=== PATIENT | female | born 1955 | race Caucasian/White ===

== ENCOUNTER → 2021-05-14 | Outpatient (CLI) | payer OTHER ==
[2021-05-14 13:56] LABS: RED BLOOD COUNT 4.55 M/UL (4.00-5.10); WHITE BLOOD COUNT 7.9 K/UL (4.5-11.0)
[2021-05-14 14:26] LABS: BUN/CREATININE RATIO 23 (0-10)
[2021-05-15 09:14] LABS: HBSAG SCREEN Negative (Negative); HCV AB <0.1 (0.0-0.9); HEP B CORE AB, TOT Negative (Negative)
[2021-05-15 11:14] LABS: RHEUMATOID ARTHRITIS FACTOR 60.5 IU/mL (<14.0)
[2021-05-15 12:14] LABS: RNP ANTIBODIES <0.2 AI (0.0-0.9); SJOGREN'S ANTI-SS-A <0.2 AI (0.0-0.9); SJOGREN'S ANTI-SS-B <0.2 AI (0.0-0.9); SMITH ANTIBODIES <0.2 AI (0.0-0.9)
[2021-05-16 15:14] LABS: INTRINSIC FACTOR ABS, SERUM 1.1 AU/mL (0.0-1.1)
== END ==
LOC: LAB 13:01
PROVIDERS: Internal Medicine
DX: M05.79 Rheumatoid arthritis with rheumatoid factor of multiple sites without organ or systems involvement (principal); M35.00 Sjogren syndrome, unspecified; Z79.899 Other long term (current) drug therapy; M19.042 Primary osteoarthritis, left hand; M19.041 Primary osteoarthritis, right hand
CPT/HCPCS: 36415; 73130; 80053; 83520; 85025; 85652; 86038; 86140; 86200; 86235; 86340; 86431; 86704; 86803; 87340